=== PATIENT | female | born 2005 | race African-American/Black ===

== ENCOUNTER 2025-03-23 04:25 | Observation (INO) ==
[2025-03-23 04:48] LABS: Hematocrit (blood only) 37.2 % (37.0-47.0); Hemoglobin 12.5 g/dL (12.0-16.0); Immature Granulocytes # (auto) 0.04 K/uL (0.01-0.20); Immature Granulocytes % (auto) 0.4 %; Mean Corpuscular Hemoglobin 29.6 pg (25.0-34.0); Mean Corpuscular Volume 88.2 fL (80.0-100.0); Platelet Count 266 K/uL (130-400); RDW Standard Deviation 38.8 fL (36.4-46.3); Red Blood Count 4.22 M/uL (4.20-5.40); White Blood Count 10.70 K/ul (4.8-10.8)
[2025-03-23 05:01] LABS: Pregnancy Test, Serum Negative (Negative)
[2025-03-23 05:06] LABS: Alanine Aminotransferase 15.0 U/L (7-52); Albumin Globulin Ratio 1.1 (0.9-2); Albumin Level 4.0 gm/dl (3.4-5.0); Alkaline Phosphatase 48.0 U/L (34-104); Anion Gap 9.0 (3-11); Bilirubin,Total 0.7 mg/dl (0.2-1.0); Blood Urea Nitrogen 12.0 mg/dl (6-23); Calcium 9.0 mg/dl (8.6-10.3); Carbon Dioxide 21.0 mmol/L (21-32); Chloride 105.0 mmol/L (98-107); Creatinine Clr Calc Pharmacy 142.4 ml/min; Globulin 3.6 gm/dl (2.5-4.0); Glucose 174.0 mg/dl (70-99(Fasting)); Potassium 3.6 mmol/L (3.5-5.1); Sodium 135.0 mmol/L (136-145); Total Protein 7.6 gm/dl (6.0-8.3)
--- NOTE | 2025-03-23 05:49 | Emergency Department Note ---
History of Present Illness General Chief complaint: Overdose (Accidental) Stated complaint: THC Edible Overdose Time Seen by Provider: 03/23/25 04:31 History of Present Illness This is a 19-year-old female presenting to the emergency department for evaluation of accidental marijuana overdose. Patient was at a alliance party this evening and told one of her friends that she wanted something "sweet". Patient was given what she thought was candy, however there were marijuana edibles. Patient reportedly consumed at least 4 edibles with 600 mg each THC. Patient had several episodes of vomiting. On arrival to the ER she is quite sedated without complaints. History somewhat limited secondary to patient's status. Past Med/Surg History Problem List Accidental marijuana overdose (Acute) No chronic diseases present No significant past surgical history Social History Smoking Status: Never smoker Preferred Language: Burundian Feels Safe at Home: Yes Review of Systems A total of 10 systems reviewed and were otherwise negative Physical Exam Vital Signs Vital Signs - 24 hr 03/23/25 04:30 03/23/25 04:31 03/23/25 04:31 Temperature 36.8 C Temperature Source Oral Pulse Rate 83 83 Pulse Rate [Apical] Pulse Rate from SpO2 Sensor Pulse Rhythm [Apical] Pulse Strength [Apical] Respiratory Rate 20 Respiratory Effort / Characteristics Non-Labored Spontaneous Respiratory Depth Normal Respiratory Pattern Regular Blood Pressure 95/47 L Blood Pressure [Left Arm] Blood Pressure Mean 63 Blood Pressure Mean [Left Arm] Blood Pressure Position [Left Arm] Pulse Oximetry 99 99 Oxygen Delivery Method Room Air Room Air Sepsis Recent Fever Within 48 Hours No Sepsis New/Unexplained Change in Mental Status N/A Sepsis Action Taken by Nursing No Action Required 03/23/25 04:38 03/23/25 05:00 03/23/25 06:35 Temperature Temperature Source Pulse Rate Pulse Rate [Apical] 94 H 77 Pulse Rate from SpO2 Sensor Pulse Rhythm [Apical] Regular Regular Pulse Strength [Apical] Normal Normal Respiratory Rate 16 16 Respiratory Effort / Characteristics Non-Labored Non-Labored Respiratory Depth Normal Normal Respiratory Pattern Regular Regular Blood Pressure Blood Pressure [Left Arm] 98/54 L 90/51 L Blood Pressure Mean Blood Pressure Mean [Left Arm] 68 64 Blood Pressure Position [Left Arm] Lying Pulse Oximetry 98 98 Oxygen Delivery Method Room Air Room Air Room Air Sepsis Recent Fever Within 48 Hours Sepsis New/Unexplained Change in Mental Status Sepsis Action Taken by Nursing 03/23/25 07:00 03/23/25 08:00 03/23/25 08:28 Temperature Temperature Source Pulse Rate 81 77 92 H Pulse Rate [Apical] Pulse Rate from SpO2 Sensor 81 76 Pulse Rhythm [Apical] Pulse Strength [Apical] Respiratory Rate 12 14 Respiratory Effort / Characteristics Respiratory Depth Respiratory Pattern Blood Pressure 92/54 L 91/53 L Blood Pressure [Left Arm] Blood Pressure Mean 66 65 Blood Pressure Mean [Left Arm] Blood Pressure Position [Left Arm] Pulse Oximetry 97 97 Oxygen Delivery Method Room Air Sepsis Recent Fever Within 48 Hours Sepsis New/Unexplained Change in Mental Status Sepsis Action Taken by Nursing 03/23/25 10:00 03/23/25 11:00 03/23/25 12:00 Temperature Temperature Source Pulse Rate 69 71 76 Pulse Rate [Apical] Pulse Rate from SpO2 Sensor 73 73 76 Pulse Rhythm [Apical] Pulse Strength [Apical] Respiratory Rate 16 20 15 Respiratory Effort / Characteristics Respiratory Depth Respiratory Pattern Blood Pressure 95/53 L 100/65 95/56 L Blood Pressure [Left Arm] Blood Pressure Mean 67 76 69 Blood Pressure Mean [Left Arm] Blood Pressure Position [Left Arm] Pulse Oximetry 98 97 95 Oxygen Delivery Method Sepsis Recent Fever Within 48 Hours Sepsis New/Unexplained Change in Mental Status Sepsis Action Taken by Nursing 03/23/25 12:49 Temperature Temperature Source Pulse Rate 55 L Pulse Rate [Apical] Pulse Rate from SpO2 Sensor Pulse Rhythm [Apical] Pulse Strength [Apical] Respiratory Rate Respiratory Effort / Characteristics Respiratory Depth Respiratory Pattern Blood Pressure Blood Pressure [Left Arm] Blood Pressure Mean Blood Pressure Mean [Left Arm] Blood Pressure Position [Left Arm] Pulse Oximetry Oxygen Delivery Method Sepsis Recent Fever Within 48 Hours Sepsis New/Unexplained Change in Mental Status Sepsis Action Taken by Nursing VITALS: Vitals are noted on the nurse's note and reviewed by myself. Vital signs stable. GENERAL: Well-developed, well-nourished, black female, who is in no acute distress. She is sleeping comfortably in the ER bed 10 mg IV, EARS: External ear normal. External auditory canals clear, tympanic membranes pearly madrigal without erythema or effusion bilaterally. EYES: Pupils equal round and reactive to light and accommodation. Conjunctivae without injection, sclerae without icterus. Extraocular movements intact. NOSE: Patent, turbinates without inflammation or discharge. MOUTH: Mucous membranes moist. Pharynx without erythema, blood, or exudate. Uvula midline. Airway patent. NECK: Supple without nuchal rigidity. No lymphadenopathy. No thyromegaly. Cervical spine is nontender. HEART: Regular rate and rhythm without murmurs gallops or rubs. LUNGS: Clear to auscultation bilaterally without wheezes, rales or rhonchi. No retractions or accessory muscle use. ABDOMEN: Positive normal bowel sounds x 4. Soft, nontender, without masses or organomegaly. No guarding or rebound tenderness. Course Administered Medications Lactated Ringer's (Lr) 1,000 mls @ 80 mls/hr IV .[id number] Stop: 03/26/25 16:14 Last Admin: 03/23/25 17:31 Dose: 80 mls/hr Documented By: PHILLIP Medical Decision Making Differential Diagnosis Differential diagnosis: Etiologies such as alcohol intoxication, toxicological, infection, hypoglycemia, electrolyte abnormalities, cardiac sources, intracerebral event, neurologic, as well as others were entertained. Laboratory Data 03/23/25 04:35 03/23/25 04:35 Lab Results 03/23/25 03/23/25 Range/Units 04:35 12:34 WBC 10.70 (4.8-10.8) K/ul RBC 4.22 (4.20-5.40) M/uL Hgb 12.5 (12.0-16.0) g/dL Hct 37.2 (37.0-47.0) % MCV 88.2 (80.0-100.0) fL MCH 29.6 (25.0-34.0) pg MCHC 33.6 (32.0-36.0) g/dL RDW Std Deviation 38.8 (36.4-46.3) fL RDW Coeff of Benjamin 12.0 (11.5-14.5) % Plt Count 266 (130-400) K/uL MPV 9.7 (9.4-12.4) fL Immature Gran % (Auto) 0.4 % Neut % (Auto) 70.9 % Lymph % (Auto) 22.7 % [place] % (Auto) 5.3 % Eos % (Auto) 0.4 % Baso % (Auto) 0.3 % Neut # (Auto) 7.59 H (1.40-6.50) K/uL Lymph # (Auto) 2.43 (1.20-3.40) K/uL [place] # (Auto) 0.57 (0.11-0.59) K/uL Eos # (Auto) 0.04 (0.00-0.50) K/uL Baso # (Auto) 0.03 (0.00-0.20) K/uL Immature Gran # (Auto) 0.04 (0.01-0.20) K/uL Sodium 135 L (136-145) mmol/L Potassium 3.6 (3.5-5.1) mmol/L Chloride 105 (98-107) mmol/L Carbon Dioxide 21 (21-32) mmol/L Anion Gap 9 (3-11) BUN 12 (6-23) mg/dl Creatinine 0.59 L (0.6-1.2) mg/dl Est Cr Clr Drug Dosing 142.4 ml/min eGFR 132.23 BUN/Creatinine Ratio 20.3 H (10-20) Glucose 174 H (70-99(Fasting)) mg/dl Calcium 9.0 (8.6-10.3) mg/dl Total Bilirubin 0.7 (0.2-1.0) mg/dl AST 14 (13-39) U/L ALT 15 (7-52) U/L Alkaline Phosphatase 48 (34-104) U/L Total Protein 7.6 (6.0-8.3) gm/dl Albumin 4.0 (3.4-5.0) gm/dl Globulin 3.6 (2.5-4.0) gm/dl Albumin/Globulin Ratio 1.1 (0.9-2) HCG, Qual Negative (Negative) Urine Color Yellow Urine Appearance Clear (Clear) Urine pH 6.5 (4.5-7.5) Ur Specific Cook 1.016 (1.000-1.030) Urine Protein Negative (Negative) Urine Glucose (UA) Negative (Negative) Urine Ketones 2+ H (Negative) Urine Blood Negative (Negative) Urine Nitrite Negative (Negative) Urine Bilirubin Negative (Negative) Urine Urobilinogen Negative (Negative) Ur Leukocyte Esterase Trace H (Negative) Urine WBC (Auto) 6-10 H (0-5) /hpf Urine RBC (Auto) 0-2 (0-2) /hpf U Hyaline Cast (Auto) 0-2 (0-2) /lpf U Epithel Cells (Auto) 3-5 H (0-2) /hpf Urine Bacteria (Auto) None Seen (None Seen) Urine Comment Urine Opiates Screen Neg (Neg) Ur Methadone, Qual Neg (Neg) Urine Fentanyl Screen Neg (Neg) Urine Barbiturates Neg (Neg) Ur Phencyclidine (PCP) Neg (Neg) U Amphetamin/Meth Scrn Neg (Neg) MDMA (Ecstasy) Screen Neg (Neg) U Benzodiazepines Scrn Neg (Neg) Ur Cocaine Metabolite Neg (Neg) U Marijuana (THC) Screen Pos H (Neg) Ethyl Alcohol mg/dL < 10.0 (<10.0) mg/dl MDM Narrative Physical exam and history were performed. Nursing notes, EMR, and Medication List were personally reviewed. No social concerns were identified as barriers to patients care. History was provided by EMS. Patient appears to have consumed a significant mount of marijuana product prior to ER evaluation. She is quite obtunded on arrival. Blood work was obtained and patient was cared for under aspiration precautions. An order was placed for continuous cardiac monitoring. The monitor shows a rate of 62 with normal sinus rhythm. Patient's blood work is as above and was reviewed. She does not have a significant elevated white blood cell count, gross anemia, bandemia, or significant electrolyte imbalance. Glucose 174. Transaminases not diagnostic. She is not . Alcohol is negative which does support the story that marijuana is contributing to her symptoms. Patient remained in stable condition until the time of shift change. Case was discussed with my colleague, CARINE Magaña, who will assume care at this time. Please see Ms. Malin's dictation for further patient course, plan, and disposition. The chart was completed utilizing [employer] Speech Voice Recognition Software. Grammatical errors, random word insertions, pronoun errors, and incomplete sentences are an occasional consequence of this system due to software limitations, ambient noise, and hardware issues. Any formal questions or concerns about the content, text, or information contained within the body of this dictation should be directly addressed to the provider for clarification. Impression & Plan Accidental marijuana overdose Discharge Plan Visit Data Chief Complaint: Overdose (Accidental) Stated Complaint: THC Edible Overdose ED Provider: Devin Beth ED Midlevel Provider: Shawna Malin Discharge Problem: Accidental marijuana overdose Patient Disposition: Admitted As Inpatient Condition: Good Discharge Instructions Interventions: ED Discharge Assessment Last Done: 03/23/25 14:37
--- NOTE | 2025-03-23 12:08 | Emergency Department Note ---
ED Visit Note Received the patient as a signout from colleague Joselo Mcintosh PA-C for reevaluation around 12 PM today. 0800: I went to the bedside to evaluate the patient who was resting quietly. Will re-assess the patient at noon. Lungs remain clear. RRR. Patient will open her eyes and answer questions but is drowsy. Patient remained on the medical or surgical instrument maker and closely monitored by nursing. 1210: I reassessed the patient at the bedside. She again woke up but was drowsy. She did answer questions appropriately. Consulted with resident Dr. Sheppard for admission. UA and UDS was ordered. Patient accepted. .
[2025-03-23 13:08] LABS: Appearance Urine Clear (Clear); Bacteria Urine Automated None Seen (None Seen); Cast Urine Automated 0-2 /lpf (0-2); Glucose Urine UA Negative (Negative); RBC Urine Automated 0-2 /hpf (0-2)
--- NOTE | 2025-03-23 13:22 | History & Physical Report ---
Date of Service March 23, 2025 Assessment & Plan (1) Accidental marijuana overdose: Rodrigo Mtz is a 19yo with no known PMH who was brought in by EMS. Per roommate, patient ingested [id number] marijuana gummy candies. Due to obtundation, no meaningful history was obtained from patient. Initial testing notable for +THC in UDS. Labs otherwise unremarkable. Vitals remain stable. Patient is being admitted for close monitoring and supportive care for accidental overdose. #Accidental overdose - Roommate reports patient ingested [id number] marijuana gummy candies. Patient then became dizzy/lightheaded --> jittery --> paranoid. Patient then had projectile vomiting, and roommate called EMS - In ER, patient became progressively more sedated. By time of admission, she was obtunded, arousable briefly to voice. Exam otherwise benign. Vitals stable. Labs (CBC, CMP) unremarkable apart from UDS with +THC and no other substance - Will order PRNs for when pt awakens: Zofran for nausea, Tylenol for pain, Lorazepam for agitation/paranoia - Will run IV fluids at low rate - LR 1L at 80ml/hr - Poison control was called and advised continuing above supportive care as well as checking other tox levels (apap) and obtaining EKG. They were given patient's details and will continue to follow - Unlikely but possible need for one-to-one or psych consult once patient awakens VTE ppx: none; ambulation when able Diet: regular once awake and alert Dispo: home once back at baseline History of Present Illness Primary Care Provider: NO PCP Bibi is a 19yo with no known PMH who was brought in by EMS. Patient is obtunded and history is obtained from her roommate. She was at a friend's apartment, wanted something sweet, and was given 4 gummy candies. She was under the impression these were simple "vegan gummies." She met her roommate to walk back to their home, and started feeling dizzy and lightheaded. Roommate asked if she had slept ok, eaten today, or taken anything recently. She gave the patient some juice and sat her down. Patient continued to worsen, feeling jittery then paranoid then projectile vomiting onto roommate's floor. She continued to vomit as roommate call 911. Roommate did learn that each gummy contained 600mg marijuana. She says patient does not drink, smoke, or use any substances normally. Past Med/Surg History Problem List Accidental marijuana overdose No chronic diseases present No significant past surgical history Social History Smoking Status: Never smoker Preferred Language: Japanese Feels Safe at Home: Yes Review of Systems Review of Systems: Per HPI Physical Exam Physical Exam: Gen: WD/WN HEENT: NCAT, normal conjunctiva, MMM CV: RRR, no m/r/g, normal S1/S2 Resp: CTAB, symmetrical chest rise, breathing unlabored Abd: Soft, nondistended, normoactive BS, no HSM MSK: No gross deformities on inspection Skin: Warm, dry, well-perfused, no rashes or other lesions appreciated Neuro: Obtunded, but arousable to voice. PERRL, reflexes intact, no focal deficits Results & Data Results & Data Vital Signs (Past 12 Hours) Vital Signs Temp Pulse Pulse Resp BP BP Pulse Ox 03/23/25 12:49 55 L 03/23/25 12:00 76 15 95/56 L 95 03/23/25 11:00 71 20 100/65 97 03/23/25 10:00 69 16 95/53 L 98 03/23/25 08:28 92 H 03/23/25 08:00 77 14 91/53 L 97 03/23/25 07:00 81 12 92/54 L 97 03/23/25 06:35 77 16 90/51 L 98 03/23/25 05:00 94 H 16 98/54 L 98 03/23/25 04:38 03/23/25 04:31 99 03/23/25 04:31 36.8 C 83 20 95/47 L 99 03/23/25 04:30 83 O2 Del Method 03/23/25 12:49 03/23/25 12:00 03/23/25 11:00 03/23/25 10:00 03/23/25 08:28 03/23/25 08:00 Room Air 03/23/25 07:00 03/23/25 06:35 Room Air 03/23/25 05:00 Room Air 03/23/25 04:38 Room Air 03/23/25 04:31 Room Air 03/23/25 04:31 Room Air 03/23/25 04:30 Supervising Physician Co-Signing Physician Notes Attending attestation Pt seen and examined in concert with Dr. Sheppard. In agreement with the documented findings as noted in the resident documentation with any exceptions or additions as noted here. At time of examination, patient can be roused by heavy touch and loud voice but answers questions unreliably. Ancillary history from Radha, roommate, at bedside. Radha has 3 years of friendship and living with the patient, reports no known medical or psychiatric issues nor history of substance use. Encounter with cannabis gummies as noted in chart. VS as noted. On examination, S1/S2 nl RRR no MCG. CTAB. Abd NT/ND BS+ve Intractable somnolence in the setting of accidental cannabinoid overdose - IV hydration with ondansetron and APAP PRN. Consider 1:1 with behavioral disturbances if needed. Will contact poison control for any further recommendations or monitoring. Else see resident documentation as noted. Resident Activity Tracking Resident Involvement: Resident Care Provided Care Provided: Adult Hospital Medicine
[2025-03-23 13:32] LABS: Amphetamines+Metham, Urine Neg (Neg); MDMA (Ecstacy), Urine Neg (Neg); Marijuana, Urine Pos (Neg)
[2025-03-23] MEDS ORDERED: POLYETHYLENE (MIRALAX) 17 GM PACK PO PRN (15:14)
[2025-03-23] MEDS ORDERED: ONDANSETRON INJ 2 MG/ML 2 ML VIAL IV PRN (15:14)
[2025-03-23] MEDS ORDERED: LORazepam Inj 1 MG in SYRINGE 0.5 ML IV PRN (16:09)
[2025-03-23] MEDS ORDERED: ACETAMINOPHEN 1,000 MG/100 ML VIAL IV PRN (16:09)
[2025-03-23] MEDS: LACTATED RINGER'S 1,000 ML IV SCH (17:31)
[2025-03-24 06:09] LABS: Hematocrit (blood only) 32.6 % (37.0-47.0); Hemoglobin 10.9 g/dL (12.0-16.0); Mean Corpuscular Hemoglobin 29.8 pg (25.0-34.0); Mean Corpuscular Volume 89.1 fL (80.0-100.0); Platelet Count 255 K/uL (130-400); RDW Standard Deviation 39.6 fL (36.4-46.3); Red Blood Count 3.66 M/uL (4.20-5.40); White Blood Count 6.56 K/ul (4.8-10.8)
[2025-03-24 06:28] LABS: Alanine Aminotransferase 11.0 U/L (7-52); Albumin Globulin Ratio 1.4 (0.9-2); Albumin Level 3.7 gm/dl (3.4-5.0); Alkaline Phosphatase 43.0 U/L (34-104); Anion Gap 5.0 (3-11); Bilirubin,Total 0.8 mg/dl (0.2-1.0); Blood Urea Nitrogen 10.0 mg/dl (6-23); Calcium 8.6 mg/dl (8.6-10.3); Carbon Dioxide 27.0 mmol/L (21-32); Chloride 108.0 mmol/L (98-107); Creatinine Clr Calc Pharmacy 158.5 ml/min; Globulin 2.7 gm/dl (2.5-4.0); Glucose 79.0 mg/dl (70-99(Fasting)); Potassium 3.8 mmol/L (3.5-5.1); Sodium 140.0 mmol/L (136-145); Total Protein 6.4 gm/dl (6.0-8.3)
[2025-03-24 07:04] VITALS: BP 95/58; PULSE 74; RESP 14; TEMP 98.2; O2SAT 97
--- NOTE | 2025-03-24 09:22 | Discharge Summary ---
Date of Service March 24, 2025 Admission HPI Per Admitting Provider Bibi is a 19yo with no known PMH who was brought in by EMS. Patient is obtunded and history is obtained from her roommate. She was at a friend's apartment, wanted something sweet, and was given 4 gummy candies. She was under the impression these were simple "vegan gummies." She met her roommate to walk back to their home, and started feeling dizzy and lightheaded. Roommate asked if she had slept ok, eaten today, or taken anything recently. She gave the patient some juice and sat her down. Patient continued to worsen, feeling jittery then paranoid then projectile vomiting onto roommate's floor. She continued to vomit as roommate call 911. Roommate did learn that each gummy contained 600mg marijuana. She says patient does not drink, smoke, or use any substances normally. Principal Diagnosis accidental marijuana overdose Discharge Exam Gen: AOx3, answers questions and follows commands, NAD, WD/WN HEENT: NCAT, normal conjunctiva, MMM CV: RRR, no m/r/g Resp: CTAB, symmetrical chest rise, breathing unlabored Abd: Soft, NT/ND, +BS, no HSM MSK: Full ROM, no gross deformities on inspection Skin: Warm, dry, well-perfused, no rashes or bruising Neuro: CN II-XII grossly intact, moves all extremities, reflexes intact, SILT Discharge Data Allergies Allergy/AdvReac Type Severity Reaction Status Date / Time No Known Allergies Allergy Unverified 03/24/25 09:04 Consultations 03/23/25 13:33 ED Decision to Admit Stat Hospital Course (1) Accidental marijuana overdose: Rodrigo Mtz is a 19yo with no known PMH who was brought in by EMS. Per roommate, patient ingested [id number] marijuana gummy candies. Due to obtundation, no meaningful history was obtained from patient. Initial testing notable for +THC in UDS. Labs otherwise unremarkable. Vitals remain stable. Patient was admitted for close monitoring and supportive care for accidental overdose. Safe for discharge when awake, alert and feeling well. Will need several days to recover at home, before resuming school or normal activities. #Accidental overdose - Roommate reports patient ingested [id number] marijuana gummy candies. Patient then became dizzy/lightheaded --> jittery --> paranoid. Patient then had projectile vomiting, and roommate called EMS - In ER, patient became progressively more sedated. By time of admission, she was obtunded, arousable briefly to voice. Exam otherwise benign. Vitals stable. Labs (CBC, CMP) unremarkable apart from UDS with +THC and no other substance - Pt started on IV fluids, w/ plan for regular diet once awake - PRNs ordered for potential sx upon awakening: Zofran for nausea, Tylenol for pain, Ativan for agitation/paranoia - Poison control was called and advised continuing above supportive care as well as checking other tox levels (apap <10) and obtaining EKG (nsr at 68bpm). They were given patient's details in order to continue to follow case - Patient awoke this morning. Still very tired and soft-spoken but was coherent, conversant, and reported feeling well. Several friends at bedside instructed to help her rest. Rx sent for PRN Zofran 4mg ODT. Exact recovery course uncertain, but do not expect >1 wk of sx or any long-term complications of this overdose. VTE ppx: none; ambulation when able Diet: regular once awake and alert Dispo: home once back at baseline Total Time Total Time Spent Total Time Spent (In Minutes): See attending documentation Discharge Plan Discharge Items Patient Disposition: Home - Self-Care Reason For Visit: INTOXICATION Discharge Diagnosis: Marijuana overdose Condition on Discharge: Good Activity: Per Instructions section Non-emergency contact: Primary Care Provider Call non-emergency contact if: your symptoms worsen Follow-up/Referrals: DOMINGO GRANT [Other] Diet: Regular Addtl Attending Provider Instructions: You were admitted to the hospital after taking about 2.4g of marijuana edibles and having a severe adverse response. On admission, you were largely unconscious/unresponsive, but your lab results and vital signs remained normal. You were treated with IV fluids, with nausea or pain meds available if needed. You were deemed safe for discharge when you regained consciousness and reported feeling better. You can finish recovering by resting at home and ensuring you stay fed and hydrated. The course of your recovery is difficult to predict in an overdose situation like this, but you will certainly need to take several days off to rest before considering resuming your final exams. Medications We sent a prescription for Zofran (ondansetron) to your pharmacy. Take one tablet of 4mg Zofran as needed for nausea. You may safely take Tylenol every 6 hours if needed for pain. Take your medications as instructed; do not skip a dose. Make sure all of your doctors know every medicine you are taking (including ydov-syv-xaytlay medicines, vitamins, and supplements). Follow-up appointments: Make a follow-up appointment with your PCP within the next week. It is very important that you follow up with them shortly after discharge from the hospital. You may call [phone] and ask to leave a message for Dr. Sheppard if you have any questions about your hospitalization. Contact your PCP if your symptoms return or worsen. Call [phone] or go to the ER if you experience any of the following: Sudden, severe abdominal pain or nausea/vomiting Severe chest pain, or chest pain that radiates (moves) to your jaw or arm Sudden, severe shortness of breath or difficulty breathing Thank you for allowing us to participate in your care. Pending Studies at Discharge: No Stand-Alone Forms: My [facility] Spacious, Smoking Cessation Medications and DC Order Prescriptions: New ondansetron 4 mg tablet,disintegrating 4 mg PO DAILY PRN (Reason: nausea and vomiting) Qty: 10 0RF Discharge Orders: Discharge Order (Routine); Ordered 03/24/25 Ordered By: Samara Sheppard Admission Data Admit Date/Time: 03/23/25 13:22 Attending Provider: ePrcy Mayes Admit Provider: Samara Sheppard Primary Care Provider: DOMINGO GRANT Other Providers: Samara Sheppard Other Interventions: Discharge Summary Assessment (RN) Last Done: 03/24/25 11:11 Supervising Physician Co-Signing Physician Notes Attending attestation Pt seen and examined in concert with Dr. Sheppard. In agreement with the documented findings as noted in the resident documentation with any exceptions or additions as noted here. At time of examination, patient awake and interactive, though still quiet and somnolent. Denies pain/discomfort, n/v. Tolerating diet with ease. VS as noted. On examination, S1/S2 nl RRR no MCG. CTAB. Abd NT/ND BS+ve Intractable somnolence in the setting of accidental cannabinoid overdose - s/p IV hydration with ondansetron and APAP PRN with good effect. 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 Else see resident documentation as noted. Total attending physician time spent with this patient's care on the day of discharge: 20 minutes. Resident Activity Tracking Resident Involvement: Resident Care Provided Care Provided: Adult [facility] Medicine
--- NOTE | 2025-03-25 05:44 | Electrocardiogram Report ---
Test Reason : Blood Pressure : */* mmHG Vent. Rate : 68 BPM Atrial Rate : 68 BPM P-R Int : 130 ms QRS Dur : 90 ms QT Int : 418 ms P-R-T Axes : 52 83 68 degrees QTcB Int : 444 ms Normal sinus rhythm with sinus arrhythmia Normal ECG No previous ECGs available Confirmed by Milad Magana ([id number]) on 03/25/2025 5:44:29 AM Referred By: REFERRED SELF Confirmed By: Milad Magana
== END 2025-03-24 12:47 | disposition home or self-care (01) ==
LOC: ED 04:25 → 3E 04:25